=== PATIENT | male | born 1995 | race Caucasian/White ===

== ENCOUNTER 2018-04-23 21:07 | Emergency (ER) | payer OTHER ==
[2018-04-23 21:21] VITALS: BP 110/60; PULSE 66; TEMP 98.4; BMI 27.4
--- NOTE | 2018-04-23 21:32 | PDOC ---
History of Present Illness - General History Source: Patient Exam Limitations: No Limitations - History of Present Illness Initial Comments: 04/23/18 21:48 The patient is a 22 year old male, with no past medical history,, who presents to the emergency department with increasing periumbilical abdominal pain with associated arlyn colored stools since Wednesday. He states he returned from [place] on Wednesday, but developed his symptoms on Wednesday while in [place] after a night of drinking alcohol outside of his resort. He states he does not drink alcohol regularly, however, was with friends and drank a large amount of alcohol on Wednesday night. He states his stools are formed, nonbloody, and arlyn colored as he points to the beige wall as reference. He states he has has decreased appetite since. He reportedly ate pizza at noon which prompted a bowel movement. He states eating anything makes him move his bowels. He states he drank pedialyte last night for hydration. He denies drinking from [place] or [place]. The patient denies chest pain, shortness of breath, headache and dizziness. The patient denies fever, chills, nausea, vomit, diarrhea and constipation. The patient denies dysuria, frequency, urgency and hematuria. Allergies: Penicillins PCP - Dr. Ovalle <Brenda Cardenas - Last Filed: 04/23/18 21:48> <Minal Najera - Last Filed: 04/24/18 06:02> - General Chief Complaint: Diarrhea Stated Complaint: ABDOMINAL PAIN X 6 DAYS Time Seen by Provider: 04/23/18 21:16 Past History <Brenda Cardenas - Last Filed: 04/23/18 21:48> - Past Medical History Cancer: Yes (TESTICULAR @ AGE 4) COPD: No - Immunization History Td Vaccination: Yes Immunization Up to Date: Yes - Suicide/Smoking/Psychosocial Hx Smoking Status: Yes Smoking History: Never smoked Number of Cigarettes Smoked Daily: 5 Hx Alcohol Use: Yes Drug/Substance Use Hx: No Substance Use Type: None Hx Substance Use Treatment: No <Minal Najera - Last Filed: 04/24/18 06:02> - Past Medical History Allergies/Adverse Reactions: Allergies Allergy/AdvReac Type Severity Reaction Status Date / Time Penicillins Allergy Verified 04/23/18 21:10 Home Medications: Ambulatory Orders No Home Medications 0 dose .ROUTE UTDICT 02/01/13 Review of Systems - Review of Systems Able to Perform ROS?: Yes Comments:: 04/23/18 21:48 CONSTITUTIONAL: (+) decreased appetite.Absent: fever, no chills, no fatigue EYES: Absent: visual changes ENT: Absent: ear pain, no sore throat CARDIOVASCULAR: Absent: chest pain, no palpitations RESPIRATORY: Absent: cough, no SOB GI: (+) abdominal pain, arlyn colored stool, Absent: no nausea, no vomiting, no constipation, no diarrhea GENITOURINARY: Absent: dysuria, no frequency, no hematuria MUSKULOSKELETAL: Absent: back pain, no arthralgia, no myalgia SKIN: Absent: rash NEURO: Absent: headache <Brenda Cardenas - Last Filed: 04/23/18 21:48> *Physical Exam - Vital Signs Last Vital Signs Temp Pulse Resp BP Pulse Ox 98.4 F 66 16 110/60 99 04/23/18 21:09 04/23/18 21:09 04/23/18 21:09 04/23/18 21:09 04/23/18 21:09 - Physical Exam Comments: 04/23/18 21:49 GENERAL: The patient is awake, alert, and fully oriented, in no acute distress. HEAD: Normal with no signs of trauma. EYES: Pupils equal, round and reactive to light, extraocular movements intact, sclera anicteric, conjunctiva clear with no pallor. ENT: Ears normal, nares patent, oropharynx clear without exudates. Moist mucous membranes. NECK: Normal range of motion, supple without lymphadenopathy, JVD, or masses. LUNGS: Breath sounds equal, clear to auscultation bilaterally. No wheeze/ crackles. HEART: Regular rate and rhythm, normal S1 and S2 without murmur or rub. ABDOMEN:(+) mild tenderness of the epigastric, right upper quadrant and periumbilical regions. No guzman sign. Soft/nondistended. BS wnl. No guarding or rebound. No palpable masses. No hepatosplenomegaly. EXTREMITIES: Normal range of motion, no edema. No clubbing or cyanosis. No cords , erythema, or tenderness. NEUROLOGICAL: Cranial nerves II through XII grossly intact. Normal speech, normal gait. PSYCH: Normal mood, normal affect. SKIN: Warm, Dry, normal turgor, no rashes or lesions noted. <Brenda Cardenas - Last Filed: 04/23/18 21:48> - Vital Signs Last Vital Signs Temp Pulse Resp BP Pulse Ox 98.4 F 66 16 110/60 99 04/23/18 21:09 04/23/18 21:09 04/23/18 21:09 04/23/18 21:09 04/23/18 21:09 <Minal Najera - Last Filed: 04/24/18 06:02> Moderate Sedation - Procedure Monitoring Vital Signs: Procedure Monitoring Vital Signs Temperature 98.4 F 04/23/18 21:09 Pulse Rate 66 04/23/18 21:09 Respiratory Rate 16 04/23/18 21:09 Blood Pressure 110/60 04/23/18 21:09 O2 Sat by Pulse Oximetry (%) 99 04/23/18 21:09 <Brenda Cardenas - Last Filed: 04/23/18 21:48> - Procedure Monitoring Vital Signs: Procedure Monitoring Vital Signs Temperature 98.4 F 04/23/18 21:09 Pulse Rate 66 04/23/18 21:09 Respiratory Rate 16 04/23/18 21:09 Blood Pressure 110/60 04/23/18 21:09 O2 Sat by Pulse Oximetry (%) 99 04/23/18 21:09 <Mianl Najera - Last Filed: 04/24/18 06:02> ED Treatment Course - LABORATORY CBC & Chemistry Diagram: 04/23/18 21:40 04/23/18 21:40 <Minal Najera - Last Filed: 04/24/18 06:02> Progress Note - Progress Note Progress Note: Documentation has been prepared under my direction and personally reviewed by me in its entirety. I attest that this documented accurately reflects all work, treatment, procedures and medical decision making performed by me. <Minal Najera - Last Filed: 04/24/18 06:02> Medical Decision Making - Medical Decision Making As noted above, this 22 y.o man presents with upper abdominal pain,decreased appetite and arlyn-colored stools. No hx of jaundice. Exam as noted. No significant abdominal tenderness. Labs notable for normal WBC; bilirubin and transaminase levels are normal. The patient is comfortable without further epigastric pain after IV fluid administratiom <Minal Najera - Last Filed: 04/24/18 06:02> *DC/Admit/Observation/Transfer - Attestations Scribe Attestion: 04/23/18 21:49 Documentation prepared by Brenda Cardenas, acting as medical writer for Minal Najera MD <Brenda Cardenas - Last Filed: 04/23/18 21:48> <Minal Najera - Last Filed: 04/24/18 06:02> Diagnosis at time of Disposition: Gastroenteritis, Dehydration - Discharge Dispostion Disposition: HOME Condition at time of disposition: Improved - Referrals Referrals: Franklin Ovalle MD [Primary Care Provider] - 3 days - Patient Instructions Printed Discharge Instructions: Dehydration Additional Instructions: continue hydration as discussed advance diet as tolerated followup with your doctor within 3 days return to ER if you have worsening pain or develop fever/vomiting - Post Discharge Activity
[2018-04-23] MEDS ORDERED: SODIUM CHLORIDE 1,000 ML IV STA (21:33)
[2018-04-23 22:04] LABS: BASO % 1.1 % (0-2.0); EOS % 5.3 % (0-4.5); HEMATOCRIT 44.9 % (35.4-49); HEMOGLOBIN 14.5 GM/dl (11.7-16.9); LYMPH % 31.1 % (8-40); MCH 29.9 pg (25.7-33.7); MCHC 32.4 g/dl (32.0-35.9); MEAN CELL VOLUME 92.4 fl (80-96); MEAN PLT VOLUME 10.7 fl (7.5-11.1); MONO % 9.4 % (3.8-10.2); NEUT % 53.1 % (42.8-82.8); PLATELET COUNT 130 K/MM3 (134-434); RBC 4.86 M/mm3 (4.00-5.60); RDW 11.8 % (11.9-15.9); WHITE BLOOD COUNT 5.2 K/mm3 (4.0-10.8)
[2018-04-23 22:14] LABS: ALBUMIN 3.9 g/dl (3.5-5.0); ALK PHOS 50 U/L (32-92); ANION GAP 6 MMOL/L (8-16); BILIRUBIN,TOTAL 0.5 mg/dl (0.2-1.0); BLOOD UREA NITROGEN 20 mg/dl (7-18); CALCIUM 8.7 mg/dl (8.4-10.2); CHLORIDE 104 mmol/L (98-107); CO2 27 mmol/L (22-28); CREATININE 0.9 mg/dl (0.6-1.3); GLUCOSE,RANDOM 86 mg/dl (74-106); POTASSIUM 3.7 mmol/L (3.5-5.1); SGOT/AST 24 U/L (10-42); SGPT/ALT 25 U/L (10-40); SODIUM 137 mmol/L (136-145); TOT PROT 6.8 g/dl (6.4-8.3)
[2018-04-23 22:32] LABS: INR 1.11 (0.82-1.09); PROTHROMBIN TIME (PATIENT) 12.4 SEC (10.2-13.0)
[2018-04-23 22:33] LABS: URINE APPEARANCE Clear; URINE BILIRUBIN Negative (NEGATIVE); URINE COLOR Yellow; URINE GLUCOSE (UA) Negative (NEGATIVE); URINE KETONE Negative (NEGATIVE); URINE LEUK ESTERASE Negative (NEGATIVE); URINE NITRITE Negative (NEGATIVE); URINE PROTEIN Negative (NEGATIVE)
[2018-04-23 23:24] LABS: LIPASE 123 U/L (73-393)
== END 2018-04-23 23:51 | disposition home or self-care (01) ==
LOC: FER 21:07
PROC: 3E0337Z Introduction of Electrolytic and Water Balance Substance into Peripheral Vein, Percutaneous Approach (ICD-10-PCS; principal; 2018-04-23)
DX: K52.9 Noninfective gastroenteritis and colitis, unspecified (principal); E86.0 Dehydration; Z85.47 Personal history of malignant neoplasm of testis
CPT/HCPCS: 36415; 80053; 81003; 83690; 85025; 85610; 99282-25; J7030

== ENCOUNTER 2021-03-21 20:34 | Emergency (ER) | payer BC ==
[2021-03-21 20:58] VITALS: BP 138/93; PULSE 90; TEMP 98.9; BMI 27.5
[2021-03-21] MEDS ORDERED: LIDOCAINE 2.5%/PRILOCAINE 2.5% (5 Gram/TUBE) TP ONE (21:04)
[2021-03-21] MEDS ORDERED: DOXYCYCLINE HYCLATE 100 MG CAPSULE PO ONE (21:36)
[2021-03-21] MEDS ORDERED: DOXYCYCLINE HYCLATE 100 MG TABLET PO ONE (21:39)
== END 2021-03-21 21:45 | disposition home or self-care (01) ==
LOC: FER 20:34
DX: S20.361A Insect bite (nonvenomous) of right front wall of thorax, initial encounter (principal); W57.XXXA Bitten or stung by nonvenomous insect and other nonvenomous arthropods, initial encounter
CPT/HCPCS: 99283-25

== ENCOUNTER 2021-08-25 16:59 | Emergency (ER) | payer SELFPAY ==
[2021-08-25 17:26] VITALS: BP 114/65; PULSE 73; TEMP 98.4; BMI 31.4
== END 2021-08-25 18:42 | disposition home or self-care (01) ==
LOC: FER 16:59
DX: M25.531 Pain in right wrist (principal); W19.XXXA Unspecified fall, initial encounter
CPT/HCPCS: 73090-TC-RT-FY; 73110-TC-RT-FY; 73130-TC-RT-FY; 99283-25

== ENCOUNTER 2022-10-09 12:23 | Emergency (ER) | payer SELFPAY ==
[2022-10-09 12:30] VITALS: BP 127/83; PULSE 98; RESP 20; TEMP 98.2; BMI 31.6
[2022-10-09] MEDS ORDERED: KETOROLAC TROMETHAMINE 30 MG/1 ML VIAL IVPUSH ONE (12:47)
[2022-10-09] MEDS ORDERED: FAMOTIDINE 20 MG/50 ML IVPB 20 MG/50 ML MG IVPB ONE ×2 (12:47→12:56)
[2022-10-09] MEDS ORDERED: KETOROLAC TROMETHAMINE 30 MG/1 ML VIAL ONE (12:57)
[2022-10-09 13:33] LABS: HEMATOCRIT 43.9 % (35.4-49); HEMOGLOBIN 15.5 G/dL (11.7-16.9); MCH 31.4 pg (25.7-33.7); MCHC 35.3 g/dl (32.0-35.9); MEAN PLT VOLUME 10.3 fl (7.5-11.1); PLATELET COUNT 110.4 10^3/uL (134-434); RBC 4.93 10^6/uL (4.00-5.60); RDW 13.4 % (11.9-15.9); WHITE BLOOD COUNT 6.8 10^3/uL (4.0-10.8)
[2022-10-09 13:39] LABS: ALBUMIN 3.7 g/dl (3.4-5.0); ALK PHOS 57 U/L (45-117); ANION GAP 5 MMOL/L (8-16); BILIRUBIN,TOTAL 0.6 mg/dl (0.2-1); CALCIUM 8.3 mg/dl (8.5-10); CHLORIDE 107 mmol/L (98-107); CO2 24 mmol/L (21-32); CREATININE 0.9 mg/dl (0.55-1.3); GLUCOSE,RANDOM 88 mg/dl (74-106); SGOT/AST 35 U/L (15-37); SGPT/ALT 50 U/L (13-61); SODIUM 136 mmol/L (136-145); TOT PROT 6.6 g/dl (6.4-8.2)
[2022-10-09] MEDS ORDERED: SODIUM CHLORIDE 1,000 ML IV STA (14:35)
== END 2022-10-09 15:08 | disposition home or self-care (01) ==
LOC: FER 12:23
PROC: 3E033GC Introduction of Other Therapeutic Substance into Peripheral Vein, Percutaneous Approach (ICD-10-PCS; principal; 2022-10-09)
PROC: 3E0333Z Introduction of Anti-inflammatory into Peripheral Vein, Percutaneous Approach (ICD-10-PCS; 2022-10-09)
PROC: 3E0337Z Introduction of Electrolytic and Water Balance Substance into Peripheral Vein, Percutaneous Approach (ICD-10-PCS; 2022-10-09)
DX: M54.50 Low back pain, unspecified (principal); M54.2 Cervicalgia; R10.13 Epigastric pain; R10.32 Left lower quadrant pain; R19.7 Diarrhea, unspecified; A08.4 Viral intestinal infection, unspecified; S16.1XXA Strain of muscle, fascia and tendon at neck level, initial encounter; W17.89XA Other fall from one level to another, initial encounter
CPT/HCPCS: 36415; 72050-TC-FY; 72100-TC-FY; 80053; 83690; 84484; 85027; 93005; 99285-25